=== PATIENT | female | born 1960 | race American Indian/Alaskan Native ===

== ENCOUNTER 2019-08-24 12:56 | Outpatient (CLI) | payer BC ==
--- NOTE | 2019-08-24 14:56 | XRay Report ---
Lumbar spine-6 views Bilateral hips-5 views INDICATION: CHRONIC HIP PAIN BILAT. COMPARISON: None. IMPRESSION: Normal lumbar spine alignment with no acute osseous abnormality or significant degenerat zuleika change. The hips and pelvis also appear normal with nothing acute and no significant DJD. No sig nificant incidental findings. Signer Name: Denis Tanner MD Signed: 08/24/2019 2:51 PM Workstation Name: [id number]
== END 2019-08-24 12:57 | disposition home or self-care (01) ==
LOC: SPVIMAG 12:56
PROVIDERS: ATTEND Internal Medicine
DX: M25.551 Pain in right hip (principal); M25.552 Pain in left hip
CPT/HCPCS: 72110; 73521